=== PATIENT | female | born 1960 | race Caucasian/White ===

== ENCOUNTER 2016-10-01 12:08 | Observation (INO) | payer MEDICARE ==
[2016-10-01] VITALS (7 sets, daily range): BP systolic 122–168; BP diastolic 63–90; PULSE 72–102; RESP 17–22; TEMP 98.1–98.6; O2SAT 93–99
[~2016-10-01] VITALS: Ht 167.6 cm; Wt 109.0 kg
[~2016-10-01 12:08] MED LIST: BECL80AE; LEVO.1 PO; LIDO5DIS35 TD; METO50TA PO; ULTR50TA PO; WARF6 PO
[2016-10-01] MEDS ORDERED: SODIUM CHLOR 0.9% 1000 ML INJ 1,000 ML IV ONE (12:30)
[2016-10-01] MEDS ORDERED: MORPHINE SULFATE 4 MG/ML INJ IV PUSH ONE (12:30)
[2016-10-01] MEDS ORDERED: ONDANSETRON HCL 4 MG/2 ML VIAL IV PUSH ONE (12:30)
--- NOTE | 2016-10-01 12:42 | PD ---
HPI Chief Complaint: Suicide Ideation/Attempt Time Seen by Provider: 12:42 Travel History International Travel<30 days: No Contact w/Intl Traveler<30days: No Traveled to known affect area: No History of Present Illness HPI 56-year-old female presents to the emergency department via EMS under Gutierrez act by local police. According to the Gutierrez act, "subject suffers from depression. Has recently got out of surgery for her hip. Today she stated that she wished to end her life and wanted someone to kill her. Made multiple suicidal statements about ending her life." Quite a the patient, she had left hip revision surgery on September 19, 2016, approximately 2 weeks ago. She went home for her daughter to care for her and was supposed to have rehabilitation come to her house to help her. She states that rehabilitation has not showed up and her daughter has not been helping her. She does state that she has not had any pain medication in 2 days. She reports chills at night. She does state that she fell last night and is having bilateral hip pain and low back pain. She denies hitting her head or LOC. She denies any neck pain. She states that she took approximately hour to call back to her bed. After her daughter did not show for 2 days, she called EMS and police today. She states that she is sick of being in pain. She does report a history of factor V and is on Coumadin. She also is on Synthroid, blood pressure medications. Patient states she is not taking her antidepressants. She states that she feels like she needs to go to rehabilitation as she cannot live alone after having the surgery. PFSH Past Medical History Hx Anticoagulant Therapy: Yes Arthritis: Yes (RHEUM, OSTEO, FIBROMYALGIA, SEES DR GRANADOS) Asthma: Yes (PATIENT STATES SEASONAL) Blood Disorders: No Anxiety: Yes Depression: Yes Cancer: No Cardiovascular Problems: Yes (HTN ) Diabetes: No Diminished Hearing: No Endocrine: Yes Gastrointestinal Disorders: Yes Glaucoma: No Genitourinary: Yes Headaches: Yes Hepatitis: No Hiatal Hernia: No Hypertension: Yes Immune Disorder: Yes Medical other: Yes (RA,OSTEROARTHRITIS , DISC DISEASE, RADICULOPATHY, FIBROMYALGIA) Musculoskeletal: Yes Neurologic: Yes Psychiatric: Yes Reproductive: No Respiratory: No Integumentary: Yes (ROSACEA) Migraines: Yes Seizures: No Thyroid Disease: Yes Past Surgical History Abdominal Surgery: Yes (APPENDECTOMY,C-SEC X2) Appendectomy: Yes Cardiac Surgery: No Ear Surgery: Yes Endocrine Surgery: No Eye Surgery: Yes (LEFT EYE MUSCLE CORRECTION CHILD) Genitourinary Surgery: No Gynecologic Surgery: Yes (HYSTERECTOMY) Hysterectomy: Yes (2009) Neurologic Surgery: Yes (LUMBAR LAMINECTOMY, CERVICAL FUSION) Oral Surgery: No Pacemaker: No Thoracic Surgery: No Other Surgery: Yes (ANTERIOR CERVICAL FUSION) Social History Alcohol Use: Yes (SOCIALLY) Tobacco Use: No Substance Use: No Allergies-Medications (Allergen,Severity, Reaction): Coded Allergies: Adhesives (Verified Allergy, Severe, BLISTERS, 10/01/16) Doxycycline (Verified Allergy, Severe, INCREASED HEART RATE, 10/01/16) Methotrexate (Verified Allergy, Severe, BLISTERS, 10/01/16) Sulfa (Verified Allergy, Severe, BLOODY STOOL, 10/01/16) Uncoded Allergies: NSAID (Allergy, Severe, INCREASED HEART RATE, 12/04/09) STEROIDS (Allergy, Severe, TACHYCARDIA, 06/03/13) Reported Meds & Prescriptions Reported Meds & Active Scripts Active Reported Fluconazole 100 Mg Tab 100 Mg PO DAILY Metoprolol Tartrate 25 Mg Tab 12.5 Mg PO HS Synthroid (Levothyroxine Sodium) 112 Mcg Tab 112 Mcg PO DAILY BRAND MEDICALLY NECESSARY Coumadin (Warfarin) 1 Mg Tab 6.5 Mg PO DAILY Take 1&1/2 tablets (1.5mg) with 6mg tablet for a total dose of 6.5mg Coumadin (Warfarin) 5 Mg Tab 6.5 Mg PO DAILY Take 1 tablet (5mg) with 1&1/2 1mg tablets (1.5mg) for a total dose of 6.5mg Losartan (Losartan Potassium) 50 Mg Tab 50 Mg PO DAILY Review of Systems Except as stated in HPI: all other systems reviewed are Neg Physical Exam Narrative GENERAL: Well-nourished, well-developed female patient, afebrile. SKIN: Focused skin assessment warm/dry. Patient has large incision to the left lateral hip with selina in place. No surrounding erythema or drainage. Incision looks well. HEAD: Normocephalic. Atraumatic. EYES: No scleral icterus. No injection or drainage. ENT: Mucosa pink and moist. No erythema or exudates. No uvular edema. No uvular , palatal, or tonsillar deviation. Airway patent. Nasal turbinates appear normal without nasal blood, purulent drainage or septal hematoma. Bilateral tympanic membranes are clear without erythema or perforation. NECK: Supple, trachea midline. No JVD or lymphadenopathy. CARDIOVASCULAR: Regular rate and rhythm without murmurs, gallops, or rubs. RESPIRATORY: Breath sounds equal bilaterally. No accessory muscle use. Lungs sounds are clear to auscultation. GASTROINTESTINAL: Abdomen soft, non-tender, nondistended. MUSCULOSKELETAL: No cyanosis, or edema. Patient has tenderness over bilateral hips. BACK: Nontender without obvious deformity. No CVA tenderness. Patient has tenderness to palpation over the midline lumbar spine. No other midline spinal tenderness. Data Data Last Documented VS Vital Signs Date Time Temp Pulse Resp B/P Pulse Ox O2 Delivery O2 Flow Rate FiO2 10/01/16 12:28 93 22 95 Room Air 10/01/16 12:28 98.1 140/77 Orders Morphine Inj (Morphine Inj) (10/01/16 12:30) Complete Blood Count With Diff (10/01/16 12:26) Comprehensive Metabolic Panel (10/01/16 12:26) Urinalysis - C+S If Indicated (10/01/16 12:26) Psych Screen (10/01/16 12:26) Drug Screen, Random Urine (10/01/16 12:26) Alcohol (Ethanol) (10/01/16 12:26) Salicylates (Aspirin) (10/01/16 12:26) Tylenol (Acetaminophen) (10/01/16 12:26) Iv Access Insert/Monitor (10/01/16 12:26) Prothrombin Time / Inr (Pt) (10/01/16 12:26) Act Partial Throm Time (Ptt) (10/01/16 12:26) Chest, Single Ap (10/01/16 ) Hip, Uni(Ap&Lat) W Ap Pelvis (10/01/16 ) Hip, Uni(Ap&Lat) Wo Ap Pelvis (10/01/16 ) Femur (Ap & Lat/2vws) (10/01/16 ) Cath For Specimen (10/01/16 12:26) Ondansetron Inj (Zofran Inj) (10/01/16 12:30) Sodium Chlor 0.9% 1000 Ml Inj (Ns 1000 M (10/01/16 12:30) Spine, Lumbar - Ltd (Ap & Lat) (10/01/16 ) Acetamin-Hydrocod 325-5 Mg ([place] 5-325 (10/01/16 12:45) Labs Laboratory Tests Test 10/01/16 10/01/16 13:00 13:50 White Blood Count 8.5 TH/MM3 Red Blood Count 4.24 MIL/MM3 Hemoglobin 13.3 GM/DL Hematocrit 39.0 % Mean Corpuscular Volume 91.9 FL Mean Corpuscular Hemoglobin 31.4 PG Mean Corpuscular Hemoglobin 34.2 % Concent Red Cell Distribution Width 12.9 % Platelet Count 518 TH/MM3 Mean Platelet Volume 7.8 FL Neutrophils (%) (Auto) 50.8 % Lymphocytes (%) (Auto) 33.1 % Monocytes (%) (Auto) 7.9 % Eosinophils (%) (Auto) 6.8 % Basophils (%) (Auto) 1.4 % Neutrophils # (Auto) 4.3 TH/MM3 Lymphocytes # (Auto) 2.8 TH/MM3 Monocytes # (Auto) 0.7 TH/MM3 Eosinophils # (Auto) 0.6 TH/MM3 Basophils # (Auto) 0.1 TH/MM3 CBC Comment DIFF FINAL Differential Comment Prothrombin Time 16.7 SEC Prothromb Time International 1.5 RATIO Ratio Activated Partial 31.1 SEC Thromboplast Time Sodium Level 142 MEQ/L Potassium Level 4.5 MEQ/L Chloride Level 109 MEQ/L Carbon Dioxide Level 28.7 MEQ/L Anion Gap 4 MEQ/L Blood Urea Nitrogen 17 MG/DL Creatinine 0.73 MG/DL Estimat Glomerular Filtration 82 ML/MIN Rate Random Glucose 98 MG/DL Calcium Level 8.7 MG/DL Total Bilirubin 0.2 MG/DL Aspartate Amino Transf 17 U/L (AST/SGOT) Alanine Aminotransferase 33 U/L (ALT/SGPT) Alkaline Phosphatase 91 U/L Total Protein 7.6 GM/DL Albumin 3.6 GM/DL Salicylates Level LESS THAN 1.7 MG/DL Acetaminophen Level LESS THAN 2.0 MCG/ML Ethyl Alcohol Level LESS THAN 3 MG/DL Urine Color YELLOW Urine Turbidity HAZY Urine pH 6.0 Urine Specific [place] 1.015 Urine Protein NEG mg/dL Urine Glucose (UA) NEG mg/dL Urine Ketones NEG mg/dL Urine Occult Blood NEG Urine Nitrite NEG Urine Bilirubin NEG Urine Urobilinogen LESS THAN 2.0 MG/DL Urine Leukocyte Esterase NEG Urine RBC LESS THAN 1 /hpf Urine WBC 1 /hpf Urine Squamous Epithelial 9 /hpf Cells Urine Bacteria OCC /hpf Urine Mucus FEW /lpf Microscopic Urinalysis Comment CULT NOT INDICATED Urine Opiates Screen NEG Urine Barbiturates Screen NEG Urine Amphetamines Screen NEG Urine Benzodiazepines Screen NEG Urine Cocaine Screen NEG Urine Cannabinoids Screen NEG MDM Medical Decision Making Medical Screen Exam Complete: Yes Emergency Medical Condition: Yes Medical Record Reviewed: Yes Interpretation(s) Chest x-ray = CONCLUSION: No acute cardiopulmonary process. X-ray left hip with pelvis - CONCLUSION: Left total hip arthroplasty. No fracture or dislocation. x-ray right hip - CONCLUSION: Right total hip arthroplasty with no fracture or dislocation. x-ray left femur - CONCLUSION: No acute fracture. X-ray lumbar spine - CONCLUSION: 1. Mild multilevel degenerative disc disease most prominent L3-4. 2. No acute fracture or listhesis. Differential Diagnosis electrolyte abnormality versus dehydration versus inability to care for self versus UTI versus chronic pain versus depression versus suicidal ideation Narrative Course 56-year-old female presents to the emergency Department under Gutierrez act by local police. Patient states she is unable to care for herself after having revision of her left hip 2 weeks ago by a surgeon in [place]. Her daughter is not helping her in rehabilitation has not shown. CBC, CMP, UA, PTT, P/INR, urine drug screen, alcohol level, salicylate level, serum level are ordered and pending. X-ray of the chest, right hip, left hip, pelvis, left femur, lumbar spine are ordered and pending. I ordered morphine 4 mg IV, Zofran 4 mg IV, normal saline 1 L IV bolus. However, patient states that she cannot have morphine and is requesting Dilaudid. Patient is given Lortab 5/325 mg at this time. CBC shows no acute abnormality. CMP shows no acute abnormality. PTT is 31.1. PT/INR is 16.7/1.5. UA shows occasional bacteria. Alcohol level is less than 3. Salicylate level is less than 1.7. Acetaminophen level is less than 2.0. Chest x-ray shows no acute cardiopulmonary process. X-ray of left hip with pelvis shows total left hip arthroplasty, no fracture dislocation. X-ray of the right hip shows right total hip arthroplasty with no fracture or dislocation. X-ray of the left femur shows no acute fracture. X-ray of the lumbar spine shows no acute fracture or listhesis. [id number] - I contacted our social work program coordinator, Marlena, who states that she will be unable to place patient in a rehabilitation facility today due to it being a Sunday and insurance. Resident is paged for admission. Dr. Archibald accepted admission. Diagnosis Primary Impression: Left hip pain Additional Impression: Depression Qualified Code: F32.9 - Depression, unspecified depression type Admitting Information Admitting Physician Requests: Observation Lakeisha Jung Oct 01, 2016 12:42
[2016-10-01] MEDS ORDERED: ACETAMINOPHEN/HYDROcodone 325 MG/5 MG TAB PO ONE (12:45)
[2016-10-01] MEDS ORDERED: COUM1TAB PO (12:51)
[2016-10-01] MEDS ORDERED: SYNT112T PO (12:51)
[2016-10-01] MEDS ORDERED: LOSA50TA PO (12:51)
[2016-10-01] MEDS ORDERED: COUM5TAB PO (12:51)
[2016-10-01] MEDS ORDERED: FLUC100T2 PO (12:52)
[2016-10-01] MEDS ORDERED: METO25TA3 PO (12:52)
[2016-10-01 13:04] LABS: AUTOMATED NEUTROPHIL # 4.3 TH/MM3 (1.8-7.7); BASOPHIL # 0.1 TH/MM3 (0-0.2); BASOPHIL % 1.4 % (0.0-2.0); EOSINOPHIL # 0.6 TH/MM3 (0-0.4); EOSINOPHIL % 6.8 % (0.0-4.0); HEMO FLAGS DIFF FINAL; LYMPH % 33.1 % (9.0-44.0); LYMPHOCYTE # 2.8 TH/MM3 (1.0-4.8); MEAN CELL VOLUME 91.9 FL (80.0-100.0); MEAN CORPUSCULAR HEMOGLOBIN 31.4 PG (27.0-34.0); MEAN CORPUSCULAR HGB CONC 34.2 % (32.0-36.0); MONO % 7.9 % (0.0-8.0); NEUT % 50.8 % (16.0-70.0); PLATELET COUNT 518 TH/MM3 (150-450); RED BLOOD COUNT 4.24 MIL/MM3 (4.00-5.30); RED CELL DISTRIBUTION WIDTH 12.9 % (11.6-17.2); WHITE BLOOD COUNT 8.5 TH/MM3 (4.0-11.0)
[2016-10-01 13:14] LABS: APTT (PATIENT) 31.1 SEC (24.3-30.1); INTERNATIONAL NORMALIZED RATIO 1.5 RATIO; PROTHROMBIN TIME - PATIENT 16.7 SEC (9.8-11.6)
[2016-10-01 13:27] LABS: ALT (GPT) 33 U/L (10-53); ANION GAP 4 MEQ/L (5-15); AST (GOT) 17 U/L (15-37); BICARBONATE 28.7 MEQ/L (21.0-32.0); BLOOD UREA NITROGEN 17 MG/DL (7-18); CHLORIDE 109 MEQ/L (98-107); GLOMERULAR FILTRATION RATE 82 ML/MIN (>89); POTASSIUM 4.5 MEQ/L (3.5-5.1); SODIUM (NA) 142 MEQ/L (136-145)
[2016-10-01 13:30] LABS: ALKALINE PHOSPHATASE 91 U/L (45-117); TOTAL BILIRUBIN ADULT 0.2 MG/DL (0.2-1.0)
[2016-10-01 13:32] LABS: ACETAMINOPHEN LESS THAN 2.0 MCG/ML (10.0-30.0)
--- NOTE | 2016-10-01 14:04 | RADRPT ---
EXAM DATE/TIME: 10/01/2016 13:29 [facility] COMPARISON: No previous studies available for comparison. INDICATIONS : Bilateral hip pain post fall last night. MEDICAL HISTORY : None. SURGICAL HISTORY : Bilateral hip replacements. ENCOUNTER: Initial ACUITY: 2 days PAIN SCORE: 7/10 LOCATION: Left hip. FINDINGS: Examination of the left hip was performed with AP Pelvis. Bilateral total hip arthroplasties. Both ap pear to be intact with no fracture CONCLUSION: Left total hip arthroplasty. No fracture or dislocation. Kodak Ramirez MD on October 01, 2016 at 14:02 Board Certified Radiologist. This report was verified electronically.
--- NOTE | 2016-10-01 14:05 | RADRPT ---
EXAM DATE/TIME: 10/01/2016 13:36 [facility] COMPARISON: No previous studies available for comparison. INDICATIONS : Bilateral hip pain post fall last night. MEDICAL HISTORY : None. SURGICAL HISTORY : Bilateral hip replacements. ENCOUNTER: Initial ACUITY: 2 days PAIN SCORE: 7/10 LOCATION: Right hip. FINDINGS: A two view examination of the right hip was performed. Right total hip arthroplasty is intact no acut e fracture CONCLUSION: Right total hip arthroplasty with no fracture or dislocation. Kodak Ramirez MD on October 01, 2016 at 14:02 Board Certified Radiologist. This report was verified electronically.
--- NOTE | 2016-10-01 14:08 | RADRPT ---
EXAM DATE/TIME: 10/01/2016 13:28 [facility] COMPARISON: No previous studies available for comparison. INDICATIONS : Pain post fall last night. MEDICAL HISTORY : None. SURGICAL HISTORY : Fusion, cervical. ENCOUNTER: Initial ACUITY: 2 days PAIN SCORE: 7/10 LOCATION: Bilateral chest FINDINGS: A single view of the chest demonstrates mild elevation of right hemidiaphragm. Lungs are clear. Heart size is normal. Degenerative spurring of the dorsal spine. Anterior fixation of the lower cervical s pine. CONCLUSION: No acute cardiopulmonary process. Kodak Ramirez MD on October 01, 2016 at 14:06 Board Certified Radiologist. This report was verified electronically.
--- NOTE | 2016-10-01 14:09 | RADRPT ---
EXAM DATE/TIME: 10/01/2016 13:31 [facility] COMPARISON: No previous studies available for comparison. INDICATIONS : Left femur pain post fall last night. MEDICAL HISTORY : None. SURGICAL HISTORY : Left hip replacement. ENCOUNTER: Initial ACUITY: 2 days PAIN SCORE: 7/10 LOCATION: Left femur. FINDINGS: Two view examination of the left femur demonstrates no evidence of fracture or dislocation. Bony min eralization is normal. A left total hip arthroplasty. Degenerative osteoarthritic changes of the lef t knee. The soft tissue structures are intact. CONCLUSION: No acute fracture. Kodak Ramirez MD on October 01, 2016 at 14:07 Board Certified Radiologist. This report was verified electronically.
--- NOTE | 2016-10-01 14:10 | RADRPT ---
EXAM DATE/TIME: 10/01/2016 13:38 [facility] COMPARISON: No previous studies available for comparison. INDICATIONS : Lower back pain post fall last night. MEDICAL HISTORY : None. SURGICAL HISTORY : None. ENCOUNTER: Initial ACUITY: 2 days PAIN SCORE: 10/10 LOCATION: Bilateral lumbar spine. FINDINGS: Two view examination was performed. There are five non-rib bearing vertebral bodies. Vertebral heigh ts are maintained. Multilevel degenerative disc disease with marginal spine most prominent at L3-4. N o listhesis. Bilateral total hip arthroplasty. CONCLUSION: 1. Mild multilevel degenerative disc disease most prominent L3-4. 2. No acute fracture or listhesis. Kodak Ramirez MD on October 01, 2016 at 14:07 Board Certified Radiologist. This report was verified electronically.
[2016-10-01 14:15] LABS: BACTERIA, URINE OCC /hpf; BLOOD, URINE NEG (NEG); COMMENT (UR) CULT NOT INDICATED; CULTURE IF INDICATED CULT NOT INDICATED; GLUCOSE,URINE NEG (NEG); KETONE, URINE NEG (NEG); MUCUS URINE FEW /lpf (OCC); NITRITE,URINE NEG (NEG); SQUAMOUS EPITHELIAL CELL URINE 9 /hpf (0-5); URINE COLOR YELLOW (YELLW/STRAW)
[2016-10-01 14:22] LABS: AMPHETAMINE, URINE NEG (NEG); BARBITURATES, URINE NEG (NEG); COCAINE, URINE NEG (NEG)
[2016-10-01] MEDS ORDERED: SODIUM CHLORIDE 0.9% FLUSH 10 ML FLUSH IV FLUSH PRN (15:30)
[2016-10-01] MEDS ORDERED: NALOXONE HCL 0.4 MG/ML AMP IV PRN (15:45)
[2016-10-01] MEDS ORDERED: ACETAMINOPHEN/HYDROcodone 325 MG/10 MG TAB PO PRN (15:45)
[2016-10-01] MEDS ORDERED: ACETAMINOPHEN/HYDROcodone 325 MG/5 MG TAB PO PRN (15:45)
[2016-10-01] MEDS ORDERED: WARF4TAB52 PO (15:55)
[2016-10-01] MEDS ORDERED: BISACODYL 10 MG SUPP RECTAL PRN (16:00)
[2016-10-01] MEDS: LOSARTAN 50 MG TAB PO SCH (16:00)
[2016-10-01] MEDS ORDERED: WARFARIN SOD 5 MG TAB PO SCH (16:00)
[2016-10-01] MEDS ORDERED: ENOXAPARIN SODIUM 40 MG/0.4 ML SYRINGE SQ SCH (16:00)
[2016-10-01] MEDS ORDERED: LACTULOSE SYRUP 20 GM/30 ML CUP PO PRN (16:00)
[2016-10-01] MEDS ORDERED: MAGNESIUM HYDROXIDE SUSP 30 ML CUP PO PRN (16:00)
[2016-10-01] MEDS ORDERED: SENNOSIDES 8.6 MG TAB PO PRN (16:00)
[2016-10-01] MEDS: HYDROmorphone HCL PF 1 MG/ML VIAL IV PRN ×2 (16:05→19:11)
[2016-10-01] MEDS ORDERED: PILL SPLITTER OTHER PRN (16:15)
[2016-10-01] MEDS: POLYETHYLENE GLYCOL 17 GM PKG PO SCH (16:15)
[2016-10-01] MEDS: FLUCONAZOLE 100 MG TAB PO SCH (17:23)
--- NOTE | 2016-10-01 17:52 | HHI.HP ---
[facility] Service Family Medicine Primary Care Physician Non-Staff Admission Diagnosis left hip pain; depression Diagnoses: Chief Complaint: "My hip hurts." International Travel<30 Days: No Contact w/Intl Traveler<30days: No Known Affected Area: No History of Present Illness Patient is a 56 y/o lady w/PMH of depression, Factor 5 Leiden, hypothyroidism, HTN, and chronic back pain who presents with acute left hip pain after fall. States she fell last night after trying to get into bed. Describes it as "left leg went out" and she landed on her right side. Was able to pull herself into bed but reports a 10.5/10 stabbing pain at her back "from the waist down" after falling. Endorses chronic numbness and tingling down her legs and down her inner thighs may have worsened. Denies weakness, trauma to the head, other types of pain, chest pain, shortness of breath, diarrhea, or bleeding. Patient had left hip revision surgery 2 weeks ago and her plan was to remain at home following surgery and to have daughter care for her. However, her daughter (age 19) has "abandoned her" and has not been able to care for her.She believes she fell due to pain and weakness after her hip surgery. Regularly taking Synthroid for her hypothyroid. Also regularly taking her medication for HTN. Patient is very frustrated by this new hip pain in addition to her chronic lower back pain from degenerative disc disease that she has had for 15 years. Has not taken her pain medication in 2 days, states it has not been helping her. Brought to ED under Gutierrez act by local police after making multiple suicidal statements like, "I want someone to kill me." . Was diagnosed with depression years ago, but stopped meds before May because they "made her a zombie." Patient's best friend is a nurse, will be staying in town this week to help care for her. (Misti Walsh MD R1) Review of Systems ROS Limitations: Uncooperative Constitutional: COMPLAINS OF: Fatigue, Night Sweats, DENIES: Fever, Chills Endocrine: DENIES: Abnorml menstrual pattern, Polyuria Eyes: DENIES: Blurred vision, Eye pain, Vision loss Ears, nose, mouth, throat: DENIES: Tinnitus, Hearing loss, Throat pain, Hoarseness Respiratory: DENIES: Cough, Hemoptysis, Shortness of breath Cardiovascular: DENIES: Chest pain, Syncope Gastrointestinal: DENIES: Abdominal pain, Bloody stools, Constipation Genitourinary: COMPLAINS OF: Vaginal discharge (white due to recent yeast infection), DENIES: Abnormal vaginal bleeding, Dysuria Musculoskeletal: COMPLAINS OF: Joint pain, Stiffness, Joint Swelling Integumentary: DENIES: Abnormal pigmentation, Pruritus, Rash Hematologic/lymphatic: COMPLAINS OF: Bruising Neurologic: DENIES: Localized weakness, Seizures, Poor Balance Psychiatric: COMPLAINS OF: Depression, Suicidal Ideation (Would like to be or "taken by God") (Misti Walsh MD R1) Past Family Social History Past Medical History Degenerative disc disease, depression, Factor 5 Leiden mutation, hypothyroidism , HTN, chronic back pain Past Surgical History Colonoscopy 2016 Hysterectomy 2008 Laminectomy 1988 Appendectomy 1969 C section 1985 R. knee scope 1989, 1997 bilateral carpal 1998 cervical fusion 2002 R. hip replacement 2005 gangion cyst removed 2012 L. foot ligament repair 2001 (Misti Walsh MD R1) Allergies: Coded Allergies: Adhesives (Verified Allergy, Severe, BLISTERS, 10/01/16) Doxycycline (Verified Allergy, Severe, INCREASED HEART RATE, 10/01/16) Methotrexate (Verified Allergy, Severe, BLISTERS, 10/01/16) Sulfa (Verified Allergy, Severe, BLOODY STOOL, 10/01/16) Uncoded Allergies: NSAID (Allergy, Severe, INCREASED HEART RATE, 12/04/09) STEROIDS (Allergy, Severe, TACHYCARDIA, 06/03/13) Active Ordered Medications Gabapentin Losartan metroprolol Synthroid Warfarin 6.5 mg PO daily Fluconazole 100 mg PO daily Family History Father: passed age 40, abdominal aneurysm Mother: passed age 68, lung cancer Sisters: age 65, 66; HTN, osteoarthritis, thyroid disease One sister murdered. Social History No smoking, recreational drugs, occasional alcohol for social events (Misti Walsh MD R1) Physical Exam Vital Signs Vital Signs Date Time Temp Pulse Resp B/P Pulse Ox O2 Delivery O2 Flow Rate FiO2 10/01/16 17:27 102 20 123/63 97 Room Air 10/01/16 17:27 97 21 10/01/16 12:28 93 22 95 Room Air 10/01/16 12:28 98.1 102 22 140/77 95 Room Air 10/01/16 12:19 102 22 140/77 98 Physical Exam GENERAL: This is a obese woman, laying in bed. She is loudly sobbing and uncooperative, initially yelling and cursing at staff. SKIN: No rashes or lesions. Cool and dry. Two areas of ecchymoses seen on abdomen. Incision site with sutures in place viewed at left lateral hip. Site is clean, dry, intact. No erythema or drainage. HEAD: Normocephalic. EYES: Pupils equal round and reactive. Extraocular motions intact. No scleral icterus. No injection or drainage. NECK: Trachea midline. CARDIOVASCULAR: Regular rate and rhythm without murmurs, gallops, or rubs. RESPIRATORY: Clear to auscultation. Breath sounds equal bilaterally. No wheezes , rales, or rhonchi. GASTROINTESTINAL: Abdomen soft, non-tender, nondistended. No hepato-splenomegaly , or palpable masses. No guarding. MUSCULOSKELETAL: Extremities without clubbing, cyanosis, or edema. No joint tenderness, effusion, or edema noted. Lower back at the sacroiliac joint shows no ecchymosis. Limited exam due to uncooperative patient. NEUROLOGICAL: Awake and alert. Motor and sensory grossly within normal limits. Normal speech. Laboratory Laboratory Tests Test 10/01/16 10/01/16 13:00 13:50 White Blood Count 8.5 Red Blood Count 4.24 Hemoglobin 13.3 Hematocrit 39.0 Mean Corpuscular Volume 91.9 Mean Corpuscular Hemoglobin 31.4 Mean Corpuscular Hemoglobin 34.2 Concent Red Cell Distribution Width 12.9 Platelet Count 518 Mean Platelet Volume 7.8 Neutrophils (%) (Auto) 50.8 Lymphocytes (%) (Auto) 33.1 Monocytes (%) (Auto) 7.9 Eosinophils (%) (Auto) 6.8 Basophils (%) (Auto) 1.4 Neutrophils # (Auto) 4.3 Lymphocytes # (Auto) 2.8 Monocytes # (Auto) 0.7 Eosinophils # (Auto) 0.6 Basophils # (Auto) 0.1 CBC Comment DIFF FINAL Differential Comment Prothrombin Time 16.7 Prothromb Time International 1.5 Ratio Activated Partial 31.1 Thromboplast Time Sodium Level 142 Potassium Level 4.5 Chloride Level 109 Carbon Dioxide Level 28.7 Anion Gap 4 Blood Urea Nitrogen 17 Creatinine 0.73 Estimat Glomerular Filtration 82 Rate Random Glucose 98 Calcium Level 8.7 Total Bilirubin 0.2 Aspartate Amino Transf 17 (AST/SGOT) Alanine Aminotransferase 33 (ALT/SGPT) Alkaline Phosphatase 91 Total Protein 7.6 Albumin 3.6 Salicylates Level LESS THAN 1.7 Acetaminophen Level LESS THAN 2.0 Ethyl Alcohol Level LESS THAN 3 Urine Color YELLOW Urine Turbidity HAZY Urine pH 6.0 Urine Specific [place] 1.015 Urine Protein NEG Urine Glucose (UA) NEG Urine Ketones NEG Urine Occult Blood NEG Urine Nitrite NEG Urine Bilirubin NEG Urine Urobilinogen LESS THAN 2.0 Urine Leukocyte Esterase NEG Urine RBC LESS THAN 1 Urine WBC 1 Urine Squamous Epithelial 9 Cells Urine Bacteria OCC Urine Mucus FEW Microscopic Urinalysis Comment CULT NOT INDICATED Urine Opiates Screen NEG Urine Barbiturates Screen NEG Urine Amphetamines Screen NEG Urine Benzodiazepines Screen NEG Urine Cocaine Screen NEG Urine Cannabinoids Screen NEG (Misti Walsh MD R1) Result Diagram: 10/01/16 1300 10/01/16 1300 Imaging Last 24 hours Impressions Lumbar Spine X-Ray 10/01/16 0000 Signed Impressions: Service Date/Time: Saturday, October 01, 2016 13:38 - CONCLUSION: 1. Mild multilevel degenerative disc disease most prominent L3-4. 2. No acute fracture or listhesis. Kodak Ramirez MD Hip and Pelvis X-Ray 10/01/16 0000 Signed Impressions: Service Date/Time: Saturday, October 01, 2016 13:29 - CONCLUSION: Left total hip arthroplasty. No fracture or dislocation. Kodak Ramirez MD Hip X-Ray 10/01/16 0000 Signed Impressions: Service Date/Time: Saturday, October 01, 2016 13:36 - CONCLUSION: Right total hip arthroplasty with no fracture or dislocation. Kodak Ramirez MD Femur X-Ray 10/01/16 0000 Signed Impressions: Service Date/Time: Saturday, October 01, 2016 13:31 - CONCLUSION: No acute fracture. Kodak Ramirez MD Chest X-Ray 10/01/16 0000 Signed Impressions: Service Date/Time: Saturday, October 01, 2016 13:28 - CONCLUSION: No acute cardiopulmonary process. Kodak Ramirez MD (Misti Walsh MD R1) Assessment and Plan Assessment and Plan Patient is a 56 y/o female w/PMH of depression, degenerative disc disease, chronic back pain, and Factor 5 Leiden who presents w/left hip and lower back pain. Admitted for pain control, Gutierrez act, and rehab placement. Code Status FULL Discussed Condition With Discussed patient w/Dr. Paula and Dr. Hu. (Misti Walsh MD R1) Attending Attestation Patient seen, examined, and discussed with resident team. I agree with assessment and management as documented and discussed with me. Yaima Pratt is a 56 yo lady admitted under observation for back pain and left hip pain sustained after a fall at home yesterday evening and after expressing suicidal ideation after frustration with her pain. She reports that she would never kill herself, but wishes the Lord would have taken her when he had the chance. She was placed under Gutierrez Act. Ms. Pratt underwent left hip revision 1.5 weeks ago in [place] and declined admission to SNF as she believed she would have family help her at home. She lives with her daughter, who is in college and has a job. Unfortunately, her daughter has not been home much since her surgery to help care for her. Last night, while trying to get into bed, patient slipped and landed on her right side. Since then, she has been experiencing worsening back pain. She has chronic paresthesias which are no worse since the fall. She denies bowel or bladder incontinence since the fall. She is admitted likely for admission to rehab. ER nurse reports that a friend who had accompanied patient had advised her that another friend will arrive tomorrow and patient's son will arrive tomorrow as well to help care for patient. Additional findings on exam: Left hip with incision - clean dry, intact. No surrounding erythema. Closed with selina and sutures. Left hip pain: Per nurse and patient, stitches and selina are due to be removed on 10/03/16. (Joelle Hu MD) Problem List: (1) Left hip pain Status: Acute Plan: Likely due to multiple factors: depression in combination w/ environmental circumstances v chronic pain - XR imaging shows multilevel degenerative disc disease in L3-4. No evidence of fractures. - will plan to focus on pain control: norco 1x provided in ED. IV Tylenol Q6H and norco PRN ordered. Dilaudid for breakthrough pain. No morphine due to patient allergy. (2) Suicidal ideations Status: Acute Plan: Patient was put under Gutierrez Act by police for suicidal ideations - was stating she want to be killed - Psych consulted - Sitter ordered for watch (3) Lumbar degenerative disc disease Status: Chronic Plan: - Patient endorses 15 year history of chronic back pain w/hx of laminectomy (1987) - pain has been refractory to epidural injections and other pain medications - patient states noranjum has worked in the past - ordered norco PRN, dilaudid for breakthrough, and IV Tylenol Q6H for pain control (4) Factor 5 Leiden mutation, heterozygous Status: Chronic Plan: - INR 1.5 today - Will con't warfarin and monitor coagulation w/ PT, INR, and APTT tomorrow (5) HTN (hypertension) Status: Chronic Plan: stable - con't home meds losartan and metroprolol (6) Hypothyroidism Status: Chronic Plan: stable - con't home med Synthroid FEN: Regular DVT prophy: Lovenox Code: FULL Dispo: pending Psych consult (Misti Walsh MD R1) Misti Walsh MD R1 Oct 01, 2016 17:52 Joelle Hu MD Oct 01, 2016 20:29
[2016-10-01] MEDS: ACETAMINOPHEN 1000 MG/100 ML VIAL IV SCH (18:00)
[2016-10-01] MEDS ORDERED: METOPROLOL TARTRATE 25 MG TAB PO SCH (21:00)
[2016-10-01] MEDS: LEVOTHYROXINE SODIUM 112 MCG TAB PO SCH (22:23)
[2016-10-01] MEDS: DOCUSATE SODIUM 50 MG/SENNA 8.6 MG TAB PO SCH (22:24)
[2016-10-01] MEDS: SODIUM CHLORIDE 0.9% FLUSH 10 ML FLUSH IV FLUSH SCH (22:25)
[2016-10-02] MEDS: ACETAMINOPHEN 1000 MG/100 ML VIAL IV SCH ×2 (00:14→06:00)
[2016-10-02 00:20] VITALS: BP 120/63; PULSE 72; RESP 17; TEMP 97.6; O2SAT 95
[2016-10-02 04:30] VITALS: BP 122/71; PULSE 62; RESP 17; TEMP 97.3; O2SAT 98
[2016-10-02 07:49] LABS: AUTOMATED NEUTROPHIL # 4.7 TH/MM3 (1.8-7.7); BASOPHIL # 0.1 TH/MM3 (0-0.2); BASOPHIL % 1.3 % (0.0-2.0); EOSINOPHIL # 0.6 TH/MM3 (0-0.4); EOSINOPHIL % 6.2 % (0.0-4.0); HEMATOCRIT 37.5 % (35.0-46.0); HEMO FLAGS DIFF FINAL; LYMPH % 38.2 % (9.0-44.0); LYMPHOCYTE # 3.7 TH/MM3 (1.0-4.8); MEAN CELL VOLUME 92.3 FL (80.0-100.0); MEAN CORPUSCULAR HEMOGLOBIN 31.2 PG (27.0-34.0); MEAN CORPUSCULAR HGB CONC 33.8 % (32.0-36.0); MONO % 6.2 % (0.0-8.0); NEUT % 48.1 % (16.0-70.0); PLATELET COUNT 533 TH/MM3 (150-450); RED BLOOD COUNT 4.06 MIL/MM3 (4.00-5.30); RED CELL DISTRIBUTION WIDTH 13.4 % (11.6-17.2); WHITE BLOOD COUNT 9.8 TH/MM3 (4.0-11.0)
[2016-10-02 07:55] LABS: APTT (PATIENT) 32.1 SEC (24.3-30.1); INTERNATIONAL NORMALIZED RATIO 1.7 RATIO; PROTHROMBIN TIME - PATIENT 18.7 SEC (9.8-11.6)
[2016-10-02 08:00] VITALS: BP 125/61; PULSE 72; RESP 18; TEMP 97.7; O2SAT 96
[2016-10-02 08:09] LABS: BICARBONATE 30.6 MEQ/L (21.0-32.0); POTASSIUM 4.5 MEQ/L (3.5-5.1)
[2016-10-02 09:38] VITALS: O2SAT 97
[2016-10-02] MEDS: LEVOTHYROXINE SODIUM 112 MCG TAB PO SCH (10:09)
[2016-10-02] MEDS: POLYETHYLENE GLYCOL 17 GM PKG PO SCH (10:10)
[2016-10-02] MEDS: FLUCONAZOLE 100 MG TAB PO SCH (10:10)
[2016-10-02] MEDS: LOSARTAN 50 MG TAB PO SCH (10:10)
[2016-10-02] MEDS: SODIUM CHLORIDE 0.9% FLUSH 10 ML FLUSH IV FLUSH SCH (10:10)
[2016-10-02] MEDS: DOCUSATE SODIUM 50 MG/SENNA 8.6 MG TAB PO SCH (10:10)
--- NOTE | 2016-10-02 10:15 | PD.PSY.CON ---
Provisional Diagnosis Admission Date Oct 01, 2016 at 14:37 Ridge I. Adjustment disorder with disturbance of conduct, history of depression and anxiety Ridge II. Deferred Ridge III. Hypothyroidism, hypertension, rheumatoid arthritis, Ridge IV. Family dynamic conflicts Ridge V. 55 History of Present Illness Service Psychiatry Consult Requested By Primary Care Physician Non-Staff HPI The patient is a 56-year-old woman, domiciled with her daughter in the [place], divorce, unemployed, , with psychiatric history of depression and anxiety, no previous psychiatric hospitalizations, no previous suicidal attempts , no active outpatient care, no psychotropics at this moment, she has been in [facility] in the past, medical history of Factor 5 Leiden, hypothyroidism, HTN, and chronic back pain who presents with acute left hip pain after a fall. States she fell last night after trying to get into bed. Describes it as "left leg went out" and she landed on her right side. Was able to pull herself into bed but reports a 10.5/10 stabbing pain at her back "from the waist down" after falling. . Patient is very frustrated by this new hip pain in addition to her chronic lower back pain from degenerative disc disease that she has had for 15 years. Has not taken her pain medication in 2 days, states it has not been helping her. Patient also says that her frustration is related with the lack of support of her family. Patient was Gutierrez acted by her daughter due to suicidal ideation. Consulted to psychiatry for symptoms of depression and SI. On psychiatric evaluation today patient is calm, cooperative and pleasant. Documentation was reviewed. Patient states that the reason she is in the hospital is because she felt and she has been having a lot of pain. Patient also says that after been discharged from the hospital on September 25 her kids has not been helping her as she needed. She was so frustrated with her daughter that she voiced a suicidal statement and got very mad with her. However, patient says that she would not kill herself and she was just very upset. Patient reports symptoms of depression related with the underlying acute medical conditions. Since her pain has been undertreated and she did not have a good rehabilitation, she has been feeling sad every day, irritable, with frequent mood swings, poor sleep at night, and poor appetite. She denies suicidal and homicidal ideation. She denies visual and auditory hallucinations. She reports protective factors for suicidality, such her kids, ethic and faith values. Patient is oriented 3, no attention deficit, no fluctuation of consciousness. Patient says that she is looking forward to be transferred to physical rehabilitation program. Now that her pain is under control her mood is much better with better sleep, appetite, and level of concentration. Also her kids has been coming regularly to visit her to the hospital. Patient denies the use of illicit drugs, she takes alcohol once or twice a week just a cup wine. Collateral information from her daughter was obtained, Unique Galvan, , who adds that she decided to Gutierrez at her mother because for one week she hasn't been able to get out of her bed and all she does is a screaming and asked for help. She says that she was out with her boyfriend for some hours and when she came back to her mother was very upset voicing that she wanted to and she was in a lot of pain. Then she decided to call the police. She describes her mother as a very conflicted, irritable person, very needy and with frequent mood swings. She says that her mother likes to manipulates and everything has to be her way. In her understanding her mother is either bipolar or has a personality disorder and need help. She does not think that her mother is an immediate danger to herself and others and she feels safe with the Gutierrez act lift. She is okay with outpatient referral to continue psychiatric care. Review of Systems Constitutional: DENIES: Diaphoretic episodes, Fatigue, Fever, Weight gain, Weight loss, Chills, Dizziness, Change in appetite, Night Sweats Endocrine: DENIES: Abnorml menstrual pattern, Heat/cold intolerance, Polydipsia , Polyuria, Polyphagia Eyes: DENIES: Blurred vision, Diplopia, Eye inflammation, Eye pain, Vision loss , Photosensitivity, Double Vision Ears, nose, mouth, throat: DENIES: Tinnitus, Hearing loss, Vertigo, Nasal discharge, Oral lesions, Throat pain, Hoarseness, Ear Pain, Running Nose, Epistaxis, Sinus Pain, Toothache, Odynophagia Respiratory: DENIES: Apneas, Cough, Snoring, Wheezing, Hemoptysis, Sputum production, Shortness of breath Gastrointestinal: COMPLAINS OF: Abdominal pain, Black stools, Bloody stools, Constipation, Diarrhea, Nausea, Vomiting, Difficulty Swallowing, Anorexia Musculoskeletal: COMPLAINS OF: Joint pain, Back pain, DENIES: Muscle aches, Stiffness, Joint Swelling, Neck pain Integumentary: DENIES: Abnormal pigmentation, Pruritus, Rash, Nail changes, Breast masses, Breast skin changes, Nipple discharge Hematologic/lymphatic: DENIES: Bruising, Lymphadenopathy Immunologic/allergic: DENIES: Eczema, Urticaria Neurologic: DENIES: Abnormal gait, Headache, Localized weakness, Paresthesias, Seizures, Speech Problems, Tremor, Poor Balance Past Family Social History Coded Allergies: Adhesives (Verified Allergy, Severe, BLISTERS, 10/01/16) Doxycycline (Verified Allergy, Severe, INCREASED HEART RATE, 10/01/16) Methotrexate (Verified Allergy, Severe, BLISTERS, 10/01/16) Sulfa (Verified Allergy, Severe, BLOODY STOOL, 10/01/16) Uncoded Allergies: NSAID (Allergy, Severe, INCREASED HEART RATE, 12/04/09) STEROIDS (Allergy, Severe, TACHYCARDIA, 06/03/13) Active Scripts Warfarin 1 Mg Tab1.5 Mg PO DAILY #30 TAB Ref 0 Prov:Kavin Paula MD R1 10/01/16 Reported Medications Fluconazole 100 Mg [id number] Mg PO DAILY #10 TAB Ref 0 10/01/16 Metoprolol Tartrate 25 Mg Tab12.5 Mg PO HS #60 TAB Ref 0 10/01/16 Levothyroxine (Synthroid)112 Mcg [id number] Mcg PO DAILY #30 TAB Ref 0 BRAND MEDICALLY NECESSARY 10/01/16 Warfarin (Coumadin)1 Mg Tab6.5 Mg PO DAILY #30 TAB Ref 0 Take 1&1/2 tablets (1.5mg) with 6mg tablet for a total dose of 6.5mg 10/01/16 Warfarin (Coumadin)5 Mg Tab6.5 Mg PO DAILY #30 TAB Ref 0 Take 1 tablet (5mg) with 1&1/2 1mg tablets (1.5mg) for a total dose of 6.5mg 10/01/16 Losartan 50 Mg Tab50 Mg PO DAILY #30 TAB Ref 0 10/01/16 Current Medications Medications (Trade) Dose Ordered Sig/Gracia Route Start Time Stop Time Status Last Admin (NS Flush) 2 ml UNSCH PRN IV FLUSH 10/01/16 15:30 (NS Flush) 2 ml BID IV FLUSH 10/01/16 21:00 10/01/16 22:25 (Ofirmev Inj) 1,000 mg Q6HR IV 10/01/16 18:00 10/02/16 06:00 (Maybeury 5-325 Mg) 1 tab Q4H PRN PO 10/01/16 15:45 (Dilaudid Pf Inj) 1 mg Q3H PRN IV 10/01/16 15:45 10/01/16 19:11 (Narcan Inj) 0.4 mg UNSCH PRN IV 10/01/16 15:45 (Maybeury 10-325 Mg) 1 tab Q4H PRN PO 10/01/16 15:45 10/01/16 22:23 (Diflucan) 100 mg DAILY PO 10/01/16 16:00 10/01/16 17:23 (Synthroid) 112 mcg DAILY PO 10/01/16 16:00 10/01/16 22:23 (Cozaar) 50 mg DAILY PO 10/01/16 16:00 (Lopressor) 12.5 mg HS PO 10/01/16 21:00 10/01/16 22:24 (Coumadin) 5 mg DAILY@16 PO 10/01/16 16:00 10/01/16 17:23 (Asia-Colace) 1 tab BID PO 10/01/16 21:00 (Milk Of Magnesia Liq) 30 ml Q12H PRN PO 10/01/16 16:00 (Senokot) 17.2 mg Q12H PRN PO 10/01/16 16:00 (Dulcolax Supp) 10 mg DAILY PRN RECTAL 10/01/16 16:00 (Lactulose Liq) 30 ml DAILY PRN PO 10/01/16 16:00 10/01/16 17:23 (Miralax) 17 gm DAILY PO 10/01/16 16:15 (Coumadin) 1.5 mg DAILY@16 PO 10/02/16 16:00 (Pill Splitter) 1 ea UNSCH PRN OTHER 10/01/16 16:15 (Lovenox Inj) 40 mg Q24H SQ 10/02/16 16:00 Family History her mother was an alcoholic Social History She was born and raised in [place], she lives with her daughter in [facility], she , unemployed, supported by savings, she is also on SSI, her highest level of education is a master degree Patient's Strengths (min. 2) Family support, high level of education Physical Exam A physical exam, patient reports pain in her back pain her hips, but no withdrawal, no EPS, no tremors, Vital Signs Vital Signs Date Time Temp Pulse Resp B/P Pulse Ox O2 Delivery O2 Flow Rate FiO2 10/02/16 04:30 97.3 62 17 122/71 98 10/01/16 20:01 Room Air 10/01/16 17:27 21 I/O 10/01/16 10/01/16 10/02/16 08:00 16:00 00:00 Intake Total 120 ml Balance 120 ml Lab Results Laboratory Tests Test 10/01/16 10/01/16 13:00 13:50 White Blood Count 8.5 Red Blood Count 4.24 Hemoglobin 13.3 Hematocrit 39.0 Mean Corpuscular Volume 91.9 Mean Corpuscular Hemoglobin 31.4 Mean Corpuscular Hemoglobin 34.2 Concent Red Cell Distribution Width 12.9 Platelet Count 518 Mean Platelet Volume 7.8 Neutrophils (%) (Auto) 50.8 Lymphocytes (%) (Auto) 33.1 Monocytes (%) (Auto) 7.9 Eosinophils (%) (Auto) 6.8 Basophils (%) (Auto) 1.4 Neutrophils # (Auto) 4.3 Lymphocytes # (Auto) 2.8 Monocytes # (Auto) 0.7 Eosinophils # (Auto) 0.6 Basophils # (Auto) 0.1 CBC Comment DIFF FINAL Differential Comment Prothrombin Time 16.7 Prothromb Time International 1.5 Ratio Activated Partial 31.1 Thromboplast Time Sodium Level 142 Potassium Level 4.5 Chloride Level 109 Carbon Dioxide Level 28.7 Anion Gap 4 Blood Urea Nitrogen 17 Creatinine 0.73 Estimat Glomerular Filtration 82 Rate Random Glucose 98 Calcium Level 8.7 Total Bilirubin 0.2 Aspartate Amino Transf 17 (AST/SGOT) Alanine Aminotransferase 33 (ALT/SGPT) Alkaline Phosphatase 91 Total Protein 7.6 Albumin 3.6 Salicylates Level LESS THAN 1.7 Acetaminophen Level LESS THAN 2.0 Ethyl Alcohol Level LESS THAN 3 Urine Color YELLOW Urine Turbidity HAZY Urine pH 6.0 Urine Specific [place] 1.015 Urine Protein NEG Urine Glucose (UA) NEG Urine Ketones NEG Urine Occult Blood NEG Urine Nitrite NEG Urine Bilirubin NEG Urine Urobilinogen LESS THAN 2.0 Urine Leukocyte Esterase NEG Urine RBC LESS THAN 1 Urine WBC 1 Urine Squamous Epithelial 9 Cells Urine Bacteria OCC Urine Mucus FEW Microscopic Urinalysis Comment CULT NOT INDICATED Urine Opiates Screen NEG Urine Barbiturates Screen NEG Urine Amphetamines Screen NEG Urine Benzodiazepines Screen NEG Urine Cocaine Screen NEG Urine Cannabinoids Screen NEG Mental Status Examination Appearance woman, age appearing, good hygiene, calm and cooperative Speech: Unremarkable Orientation: x3 Memory: Unremarkable Thought Process: Logical Thought Content: Unremarkable Language Fluent and spontaneous Fund of Knowledge Adequate for level of education Hallucination Type: None Attention and Concentration: Good Suicidal Ideation: No Previous Suicide Attempts: No Homicidal Ideation: No Previous Homicide Attempts: No Insight: Good Affect: Good Mood: Appropriate Motor Activity: Normal gait Assessment & Plan Problem List: (1) adjustment disorder with mixed emotions and disturbance of conduct Assessment & Plan: On psychiatric evaluation today the patient is calm, cooperative, logical, coherent and relevant. She does not present any evidence of acute, significant depressive symptoms, anxiety, psychosis or socorro. She denies suicidal and homicidal ideation, she denies visual and auditory hallucinations at this moment. Patient is fully oriented 3, no attention deficit, no fluctuation of consciousness, no delirium present. Patient has history of depression and anxiety, no hospitalizations, no previous suicidal attempts, she is not in any active psychotropic or outpatient care at this moment. According with evaluation and collateral information recent suicidal statement made by the patient was in the context of frustration, sense of rejection and abandonment by her family and undertreated pain rather than secondary to a major psychiatric condition decompensation. Now that patient is under medical care, and her family around, she seems to be at baseline. There is no indication for psychiatric admission at this moment. I offered restart in psychotropics, but patient declined this stating that she has been fine. Extensive support, motivation was psychoeducation provided. Psychiatry is signing off. Gutierrez act will be lifted. Assessment & Plan Estimated LOS: Pro Mccall MD Oct 02, 2016 10:15
--- NOTE | 2016-10-02 11:59 | HHI.FF ---
Face to Face Verification Diagnosis: (1) Left hip pain (2) Status post revision of total hip Physical Therapy Order: Evaluate and Treat I have seen patient Yaima Pratt on 10/02/16. My clinical findings support the need for the requested home health care services because: Deconditioned w/ increased weakness Limited ability to care for self High risk of falls I certify that my clinical findings support that this patient is homebound because: Post-op weakness Unsteady gait/balance Unsafe to leave home unassisted Renuka Rausch MD R2 Oct 02, 2016 11:59
[2016-10-02 12:00] VITALS: BP 111/68; PULSE 78; RESP 18; TEMP 96.7; O2SAT 97
[2016-10-02] MEDS ORDERED: ENOXAPARIN SODIUM 100 MG/ML SYRINGE SQ SCH (12:00)
[2016-10-02] MEDS ORDERED: ENOX100P SQ (12:22)
[2016-10-02 14:28] LABS: BACTERIA, URINE RARE /hpf; BLOOD, URINE NEG (NEG); COMMENT (UR) CULT NOT INDICATED; CULTURE IF INDICATED CULT NOT INDICATED; GLUCOSE,URINE NEG (NEG); KETONE, URINE NEG (NEG); MUCUS URINE FEW /lpf (OCC); NITRITE,URINE NEG (NEG); SQUAMOUS EPITHELIAL CELL URINE 2 /hpf (0-5); URINE COLOR LIGHT-YELLOW (YELLW/STRAW)
--- NOTE | 2016-10-02 14:37 | HHI.FPPN ---
Subjective Remarks No acute events overnight. VS unremarkable. This morning patient reports that she is very upset about her experience while in the ED and in the hospital. She reports that no one was taking care of her, no one would bring her food and that her medications are all wrong. She reports that she never intended on killing herself and that the gutierrez act was incorrectly placed. She wants to leave to go home right now as she feels like she does not need to be in the hospital. She only had to come to the hospital because her daughter, who promised that she would take of her, was not taking care of her. Patient is also very upset with her family for not being there for her after her surgery. Pt's friend, who is a retired nurse, is on her way into town today and will be staying with her for 1 week to be her sports broadcaster. She otherwise denies chest pain and SOB. Complains of chronic pain in her back and hip but does not want to take pain medications. She reports that she has a prior history of DVT and that she is suppose to be taking warfarin 6.5mg daily and Lovenox 100mg SQ q12. She is scheduled to see her orthopedic in [place] tomorrow afternoon. (Renuka Rausch MD R2) Objective Vitals Vital Signs Date Time Temp Pulse Resp B/P Pulse Ox O2 Delivery O2 Flow Rate FiO2 10/02/16 12:00 96.7 78 18 111/68 97 10/02/16 09:38 97 21 10/02/16 08:00 97.7 72 18 125/61 96 10/02/16 04:30 97.3 62 17 122/71 98 10/02/16 00:20 97.6 72 17 120/63 95 10/01/16 20:25 98.6 72 17 168/90 93 10/01/16 20:01 76 17 95 Room Air 10/01/16 20:00 78 17 122/78 95 Room Air 10/01/16 19:30 95 10/01/16 17:27 102 20 123/63 97 Room Air 10/01/16 17:27 97 21 10/01/16 14:40 98 20 142/78 99 I/O 10/01/16 10/01/16 10/01/16 10/02/16 10/02/16 10/02/16 07:00 15:00 23:00 07:00 15:00 23:00 Intake Total 120 ml 240 ml Balance 120 ml 240 ml Intake Oral 120 ml 240 ml # Voids 1 2 # Bowel Movements 0 0 (Renuka Rausch MD R2) Result Diagram: 10/02/1646 10/02/1646 Imaging GENERAL: This is a obese woman. In no acute distress but is obviously upset/ angry about her care. Sitting in chair. CARDIOVASCULAR: Regular rate and rhythm without murmurs, gallops, or rubs. RESPIRATORY: Clear to auscultation. Breath sounds equal bilaterally. No wheezes , rales, or rhonchi. NEUROLOGICAL: Awake and alert. Motor and sensory grossly within normal limits. Normal speech. (Renuka Rausch MD R2) A/P Assessment and Plan Patient is a 56 y/o female w/PMH of depression, degenerative disc disease, chronic back pain, and Factor 5 Leiden who presents w/left hip and lower back pain. Admitted for pain control and was under Gutierrez act Discharge Planning Today once Home Health is arranged. Patient declines placement to rehab sdw Dr. Walsh and Dr. Hu (Renuka Rausch MD R2) Attending Attestation Patient seen, examined, and discussed with resident team. I agree with assessment and management as documented and discussed with me. Pt expressed frustrations with her hospital stay as mentioned above. She was advised that she can request a patient advocate to help her. Her dose of lovenox was clarified with patient and corrected. Pt adamant about returning home and declines rehab. Gutierrez act has been lifted. Discharge home. (Joelle Hu MD) Problem List: (1) Left hip pain Status: Acute Plan: Likely due to multiple factors: depression in combination w/ environmental circumstances v chronic pain - XR imaging shows multilevel degenerative disc disease in L3-4. No evidence of fractures. - Pain control with [place] and IV Tylenol - PT consulted for evaluation (2) Suicidal ideations Status: Resolved Plan: Patient was put under Gut[place]rez Act by police for suicidal ideations - was stating she want to be killed but denied intention of killing herself. - Psych consulted: Gutierrez act lifted. (3) Lumbar degenerative disc disease Status: Chronic Plan: - Patient endorses 15 year history of chronic back pain w/hx of laminectomy (1987). Pain has been refractory to epidural injections and other pain medications (4) Factor 5 Leiden mutation, heterozygous Status: Chronic Plan: - INR 1.7 today - Will con't warfarin and monitor coagulation (5) HTN (hypertension) Status: Chronic Plan: stable - con't home meds losartan and metoprolol (6) Hypothyroidism Status: Chronic Plan: stable - con't home med Synthroid FEN: Regular DVT prophy: continued pt's home meds of lovenox and warfarin for therapeutic dosing Code: FULL (Renuka Rausch MD R2) Renuka Rausch MD R2 Oct 02, 2016 14:37 Joelle Hu MD Oct 02, 2016 20:14
[2016-10-02] MEDS ORDERED: ACETAMINOPHEN 1000 MG/100 ML VIAL IV PRN (14:45)
[2016-10-02] MEDS ORDERED: ENOXAPARIN SODIUM 40 MG/0.4 ML SYRINGE SQ SCH (16:00)
[2016-10-02] MEDS ORDERED: WARFARIN SOD 3 MG TAB PO SCH (16:00)
== END 2016-10-02 14:32 | disposition home health service (06) ==
LOC: NEPC 12:08 → NEDA 14:37 → N06A 20:15
PROVIDERS: ADMIT Family Medicine; ATTEND Family Medicine
DX: M25.552 Pain in left hip (principal); R45.851 Suicidal ideations; F32.9 Major depressive disorder, single episode, unspecified; D68.51 Activated protein C resistance; R20.0 Anesthesia of skin; R20.2 Paresthesia of skin; R53.83 Other fatigue; N89.8 Other specified noninflammatory disorders of vagina; M51.36 Other intervertebral disc degeneration, lumbar region; I10 Essential (primary) hypertension; E03.9 Hypothyroidism, unspecified; J45.909 Unspecified asthma, uncomplicated; E07.9 Disorder of thyroid, unspecified; M06.9 Rheumatoid arthritis, unspecified; M79.7 Fibromyalgia; G43.909 Migraine, unspecified, not intractable, without status migrainosus; F41.9 Anxiety disorder, unspecified; M19.90 Unspecified osteoarthritis, unspecified site; E66.9 Obesity, unspecified; Z86.718 Personal history of other venous thrombosis and embolism; Z79.01 Long term (current) use of anticoagulants; Z79.899 Other long term (current) drug therapy; Z98.1 Arthrodesis status; W19.XXXA Unspecified fall, initial encounter
CPT/HCPCS: 71010; 72100; 73502; 73552; 80048; 80053; 80307; 81001; 85025; 85610; 85730; 96374; 96375; 97162; 99285; G0378; G8987; G8988; J0131; J1170; J1650; J2405; J7030; P9612